=== PATIENT | female | born 1970 | race African-American/Black ===

== ENCOUNTER 2021-04-30 11:32 | Inpatient (IN) | payer OTHER ==
[2021-04-30] MEDS ORDERED: MENTHOL/PHENOL 1 EACH UD MM PRN (13:22)
[2021-04-30] MEDS ORDERED: IBUPROFEN 400 MG TABLET (FP) PO PRN (13:22)
[2021-04-30] MEDS ORDERED: MAG HYDROX/AL HYDROX/SIMETH 30 ML UNIT-DOSE CUP PO PRN (13:22)
[2021-04-30] MEDS ORDERED: MAGNESIUM HYDROX 2400MG/30ML ORAL SUSPENSION 30 ML CUP PO PRN (13:22)
[2021-04-30] MEDS ORDERED: ONDANSETRON *ODT* 4 MG TABLET SL PRN (13:22)
[2021-04-30] MEDS ORDERED: NICOTINE 10 MG CARTRIDGE (INHALER) IH PRN (13:22)
[2021-04-30] MEDS ORDERED: ACETAMINOPHEN 325 MG TABLET (FP) PO PRN ×2 (13:22)
[2021-04-30] MEDS ORDERED: BISMUTH SUBSALICYLATE 524 MG/30 ML PO PRN (13:22)
[2021-04-30] MEDS ORDERED: MAGNESIUM CITRATE 300 ML BOTTLE PO PRN (13:22)
[2021-04-30] MEDS ORDERED: METHOCARBAMOL 500 MG TABLET PO PRN (13:22)
[2021-04-30] MEDS ORDERED: hydrOXYzine PAMOATE 25 MG CAPSULE (FP) PO ONE (16:40)
[2021-04-30] MEDS: hydrOXYzine PAMOATE 25 MG CAPSULE (FP) PO SCH ×3 (16:41→22:43)
[2021-04-30] MEDS: MELATONIN 5 MG TABLETS PO SCH (22:24)
[2021-04-30] MEDS: THIAMINE HCL 100 MG TABLET (FP) PO SCH (22:25)
[2021-05-01] MEDS: hydrOXYzine PAMOATE 25 MG CAPSULE (FP) PO SCH ×5 (06:27→22:44)
[2021-05-01] MEDS ORDERED: PRENATAL VITAMINS W/ FOLIC ACID TABLET (FP) PO SCH (10:00)
[2021-05-01] MEDS: THIAMINE HCL 100 MG TABLET (FP) PO SCH (22:44)
[2021-05-01] MEDS: MELATONIN 5 MG TABLETS PO SCH (22:44)
[2021-05-02 06:36] VITALS: BP 114/71; PULSE 55; TEMP 96.9
[2021-05-02] MEDS: hydrOXYzine PAMOATE 25 MG CAPSULE (FP) PO SCH (07:07)
== END 2021-05-02 10:00 | disposition home or self-care (01) | DRG 773 ==
LOC: YASAS 11:32 → Y3N 19:45 → UNDOADMIN 19:45 → UNDODISIN 05-02 10:00
PROVIDERS: ADMIT Allergy & Immunology; ATTEND Allergy & Immunology
PROC: HZ2ZZZZ Detoxification Services for Substance Abuse Treatment (ICD-10-PCS; principal; 2021-04-30)
DX: F11.23 Opioid dependence with withdrawal (principal); F10.230 Alcohol dependence with withdrawal, uncomplicated; F17.210 Nicotine dependence, cigarettes, uncomplicated; F39 Unspecified mood [affective] disorder; Z21 Asymptomatic human immunodeficiency virus [HIV] infection status; K21.9 Gastro-esophageal reflux disease without esophagitis; Z86.19 Personal history of other infectious and parasitic diseases; Z91.410 Personal history of adult physical and sexual abuse; Z56.0 Unemployment, unspecified
CPT/HCPCS: 81025; C9803; U0003; U0005